=== PATIENT | female | born 1945 | race Caucasian/White ===

== ENCOUNTER → 2017-03-25 | Outpatient (CLI) | payer MEDICARE, BC ==
[~2017-03-25] MED LIST: 0.9% SODIUM CHLO3 ML INH; ACTIVASE IV; ADDERALL XR10 MG PO; ANORO ELLIPTA1 EACH INH; ATIVAN 0.5MG0.5 MG PO; COLACE100 MG PO; DESYREL100 MG PO; DILAUDID 2MG(HYD2 MG PO; DULCOLAX10 MG R; FEOSOL325 MG PO; FLORASTOR250 MG PO; HUMIBID LA (MU600 MG PO; INVANZ1 G1 IV; LEXAPRO20 MG PO; LIDOCAINE 1% MD20 M1 IDER; LOVENOX 4040 MG/0.4 SUB-Q; LOVENOX40 MG/0.4 SUB-Q; MELATONIN10 M2 PO; MELATONIN3 M1 PO; MILK OF MA400 MG/5 M PO; MIRALAX17 GM PO; MULTI-VITAMIN1 EAC1 PO; NEURONTIN400 MG PO; NORCO 5-325 TA1 EACH PO; OMEPRAZOLE40 MG PO; OXYGEN M-15 INH; PERCOCET 5-3251 EACH PO; PROTONIX40 MG PO; PROVENTIL2.5 MG/0.5 INH; SPIRIVA18 MCG INH; TYLENOL EXTRA500 MG PO; VALIUM5 MG PO; VANCOMYCIN HCL1 GM IV; VITAMIN D1000 UNIT PO; ZOFRAN2 MG/1 ML IV
== END | disposition disaster alternative care site (69) ==
LOC: GRAD 03-17 09:00
DX: S82.201K Unspecified fracture of shaft of right tibia, subsequent encounter for closed fracture with nonunion (principal); M85.871 Other specified disorders of bone density and structure, right ankle and foot; M85.88 Other specified disorders of bone density and structure, other site

== ENCOUNTER → 2017-05-26 | Outpatient (CLI) | payer MEDICARE, BC | END | disposition disaster alternative care site (69) | LOC: GRAD 09:28 | DX: Z47.89 Encounter for other orthopedic aftercare (principal); S82.301D Unspecified fracture of lower end of right tibia, subsequent encounter for closed fracture with routine healing; S82.831D Other fracture of upper and lower end of right fibula, subsequent encounter for closed fracture with routine healing; X58.XXXD Exposure to other specified factors, subsequent encounter ==